=== PATIENT | male | born 1985 | race Caucasian/White ===

== ENCOUNTER → 2017-08-08 | Outpatient (CLI) | payer OTHER ==
[~2017-08-08] MED LIST: MULT1TAB46 PO; SACC1CAP3 PO
[2017-08-08 11:21] LABS: HEMATOCRIT 43.9 % (39.0-51.0); HEMOGLOBIN 15.5 GM/DL (13.0-17.0); MEAN CELL VOLUME 88.1 FL (80.0-100.0); MEAN CORPUSCULAR HEMOGLOBIN 31.2 PG (27.0-34.0); MEAN CORPUSCULAR HGB CONC 35.4 % (32.0-36.0); MEAN PLATELET VOLUME 7.6 FL (7.0-11.0); PLATELET COUNT 248 TH/MM3 (150-450); RED BLOOD COUNT 4.98 MIL/MM3 (4.50-5.90); RED CELL DISTRIBUTION WIDTH 12.5 % (11.6-17.2); WHITE BLOOD COUNT 3.5 TH/MM3 (4.0-11.0)
[2017-08-08 11:25] LABS: BILIRUBIN, URINE NEG (NEG); BLOOD, URINE NEG (NEG); GLUCOSE,URINE NEG (NEG); KETONE, URINE NEG (NEG); NITRITE,URINE NEG (NEG); URINE COLOR YELLOW (YELLW/STRAW); URINE LEUKOCYTE ESTERASE NEG (NEG)
--- NOTE | 2017-08-08 11:27 | RADRPT ---
EXAM DATE/TIME: 08/08/2017 10:52 [place] COMPARISON: No previous studies available for comparison. INDICATIONS : Evaluate for pneumonia, pneumothorax or communicable disease. Pre op for left knee arthroscopy. MEDICAL HISTORY : None. SURGICAL HISTORY : None. ENCOUNTER: Initial ACUITY: 1 day PAIN SCORE: 0/10 LOCATION: Bilateral chest FINDINGS: PA and lateral views of the chest demonstrate the lungs to be symmetrically aerated without evidence of mass, infiltrate or effusion. The cardiomediastinal contours are unremarkable. Osseous structure s are intact. CONCLUSION: No acute disease. Miles Winchester MD on August 08, 2017 at 11:25 Board Certified Radiologist. This report was verified electronically.
[2017-08-08 11:29] LABS: PROTHROMBIN TIME - PATIENT 10.5 SEC (9.8-11.6)
[2017-08-08 11:43] LABS: BICARBONATE 29.4 MEQ/L (21.0-32.0); CALCIUM 9.4 MG/DL (8.5-10.1); CREATININE 1.14 MG/DL (0.60-1.30)
== END ==
LOC: CPRE 10:04
PROVIDERS: ATTEND Orthopaedic Surgery
DX: Z01.812 Encounter for preprocedural laboratory examination (principal); Z01.818 Encounter for other preprocedural examination; S83.242A Other tear of medial meniscus, current injury, left knee, initial encounter; X58.XXXA Exposure to other specified factors, initial encounter
CPT/HCPCS: 36415; 71046; 80048; 81001; 85027; 85610

== ENCOUNTER → 2017-08-18 | Day surgery (SDC) | payer OTHER ==
--- NOTE | 2017-08-14 12:07 | MH ---
cc: JEAN MARIE HUANG DATE OF ADMISSION 08/18/2017 ADMITTING DIAGNOSIS 1. Medial meniscus tear, left knee. 2. Effusion, left knee. 3. Cabrales's cyst, left knee. 4. Pain, left knee. HISTORY OF PRESENT ILLNESS The patient is a 33-year-old white male who has experienced pain in his left knee of approximately 5 months duration. The onset of his symptoms were associated with hiking and a hunting trip to the [place] area in February of this past year when he became symptomatic, especially negotiating a downhill terrain. Upon his return home he conformed to conservative management modifying all exercise activities but experiencing minimal swelling about the knee. He attempted to resume his exercise program becoming aware of generalized soreness about the suprapatellar region of his left knee and later underwent orthopedic evaluation. He was diagnosed as having chondromalacia patellae and later underwent an MRI scan the results of which identified a tear involving the posterior horn of the medial meniscus associated with a trace joint effusion and Cabrales's cyst formation. The patient was later seen by the undersigned physician in second opinion evaluation in June of this year describing lingering soreness about the left knee with an intermittent popping sensation but no significant swelling. He had previously utilized a limited amount of [id number] medication for discomfort but more recently and not required continued medical management. He denied prior history of injury involving his left knee. His clinical findings at that time were felt to be consistent with an internal derangement of his left knee involving his medial meniscus for which findings and treatment options were reviewed. The pros and cons of continuing with conservative management versus operative intervention that would involve arthroscopic surgery were outlined. Emphasis was made regarding the fact that the decision to proceed with surgery would be left entirely to the patient's discretion. The patient felt that his symptoms had progressed to that point in time where he would like to proceed accordingly and in compliance with his wishes he was scheduled for admission at this time in order that the above be accomplished. PAST MEDICAL HISTORY His past medical history, hospitalizations and surgeries have included: 1. Arthroscopic surgery of his left shoulder for history of a labral tear. 2. Tonsillectomy. The patient denies active medical illnesses. MEDICATIONS He takes no prescribed medications. ALLERGIES He indicates a drug allergy to BACTRIM WHICH HAS BEEN ASSOCIATED WITH RASH FORMATION. REVIEW OF SYSTEMS He does wear glasses. Denies headache, seizure or syncope. No sinus congestion or epistaxis. Auditory acuity intact. No tinnitus. No bleeding gums or dysphagia. Denies cough, shortness of breath, upper respiratory infection, pneumonia or tuberculosis. No angina or heart disease. His appetite is good. Bowel movements are regular. No hepatitis, gallbladder disease, ulcers or hemorrhoids. No urinary tract infection. No kidney stones. History of a fracture of his left wrist and left hand both treated nonoperatively. No psychiatric illness. His remaining review of systems is unremarkable and noncontributory. FAMILY HISTORY The patient has been for 6 years. His is 36 years of age and described as being in good health. Two daughters indicated to be in good health. Family history is otherwise positive for hypertension and diabetes. SOCIAL HISTORY The patient completed a college education with a degree in civil engineering. He is employed as a advisory software engineer. He denies active use of tobacco for at least 6 years but had been a less than a one pack per day smoker for approximately 10 years prior to that time. Ethanol consumption is no more than an occasional basis. PHYSICAL EXAMINATION Height 5 feet 10 inches, weight 185 pounds. GENERAL: An alert, oriented and responsive 33-year-old white male who sits quietly upon the examination table with no obvious distress. HEAD, EYES, EARS, NOSE, AND THROAT: Pupils are equally round and reactive to light. Extraocular movements full. Sclera clear. External nares clear. External auditory canals clear. Dental intact. Mucous membranes pink and moist. Pharynx clear. NECK: Supple. Active range of motion with no appreciable pain. Carotid pulse palpable bilaterally. Trachea midline. Thyroid without enlargement. LUNGS: Clear to auscultation and percussion. BACK: No CVA tenderness. No discomfort throughout the dorsolumbar spine. HEART: Regular rhythm. No murmur or gallop. ABDOMEN: Soft, nontender. Bowel sounds present. RECTAL: Deferred. EXTREMITIES: Left Knee: No significant swelling or appreciable intra-articular effusion. No joint line tenderness. Apprehension and compression sign negative. Satisfactory mobility of the knee joint with mild genu recurvatum. No crepitation or instability. No collateral ligamentous laxity. Jack test and drawer sign negative. Pivot shift and Negrito sign minimally positive for medial compartment pain. Straight-leg raising unremarkable at 80 degrees. Satisfactory mobility of the left hip with no associated pain. Independent gait. NEUROLOGIC: Cranial nerves II through XII grossly intact. IMPRESSION 1. Medial meniscus tear, left knee. 2. Effusion, left knee. 3. Cabrales's cyst, left knee. 4. Pain, left knee. PLAN Arthroscopic surgery left knee, possible arthrotomy. The nature of the planned surgical procedure, the potential complications and risks associated, the expectations of surgery and the consent form were thoroughly reviewed with the patient prior to his admission to the hospital. Hemal has indicated his full understanding regarding all of the above and given consent to proceed with treatment as outlined. Jean Marie Haung MD NBS/BT /11:33 AM /11:46 AM
[~2017-08-18] VITALS: Ht 177.8 cm; Wt 82.2 kg
[~2017-08-18] MED LIST changes: +ACETAMINOPHEN 1000 MG/100 ML 100 ML IV ONE; +ACETAMINOPHEN/HYDROcodone 325 MG/5 MG TAB PO PRN; +BUPIVACAINE/EPINEPHRINE 0.25% 50 ML VIAL ONE; +CHLORHEXIDINE GLUCONATE 2 % 1 PACK (2 CLOTHS) TOPICAL PRN; +DEXAMETHASONE SOD PHOS 4 MG/ML VIAL IV ONE; +DO NOT ADM ANY ANTICOAGULANT DRUGS PRN; +FAMOTIDINE 20 MG/2 ML VIAL ONE; +GLYCOPYRROLATE 1 MG/5 ML SYRINGE IV PUSH ONE; +KETOROLAC TROMETHAMINE 30 MG/ML (IVP) VIAL IV PUSH ONE; +LACTATED RINGER'S 1000 ML IV PRN; +LIDOCAINE HCL 1% PF 5 ML SYRINGE OTHER ONE; +LIDOCAINE HCL 2% 50 ML VIAL ONE; +METOPROLOL TARTRATE 25 MG TAB PO PRN; +MIDAZOLAM HCL 2 MG/2 ML VIAL ONE; +MORPHINE SULFATE 10 MG/ML INJ IM PRN; +ONDANSETRON HCL 4 MG/2 ML VIAL IV ONE; +POVIDONE IODINE 5% (ANTISEPSIS KIT) 4 APPLICATIONS EACH NARE PRN; +POVIDONE IODINE 7.5% SCRUB 118 ML BOTTLE TOPICAL SCH; +PROMETHAZINE INJ 25 MG/ML VIAL IM PRN; +PROPOFOL 200 MG/20 ML AMP IV ONE; +SODIUM CHLORID 0.9% 500 ML IV PRN; +TRIAMCINOLONE ACETONIDE/PF 40 MG/ML OPTH VIAL ONE; +ceFAZolin 2 GM PREMIX 50 ML IV SCH
[2017-08-18 09:25] VITALS: BP 113/85; PULSE 63; RESP 18; TEMP 98.7; O2SAT 99
--- NOTE | 2017-08-18 12:02 | MP ---
cc: Jose De Jesus Huang MD DATE OF OPERATION: 08/18/2017 DATE OF OPERATION: 08/18/2017 PREOPERATIVE DIAGNOSES: Medial meniscus tear of the left knee, effusion left knee, Cabrales cyst left knee and pain of the left knee. POSTOPERATIVE DIAGNOSES: Medial meniscus tear of the left knee, effusion left knee, Cabrales cyst left knee, pain of the left knee, and synovial plica left knee. PROCEDURE PERFORMED: Partial medial meniscectomy left knee with resection of synovial plica. SURGEON: Jose De Jesus Huang MD ANESTHESIA: General by LMA. DESCRIPTION OF PROCEDURE: Following the induction of satisfactory general anesthesia by LMA insertion as completed per the Department of Anesthesia, examination of the left knee did reveal a satisfactory range of motion with no appreciable ligamentous instability. The extremity proper was positioned into the Rubber Ball Finisher knee thomas, prepped with Betadine solution and draped into a sterile field in the routine manner. Prior to initiation of the actual surgical procedure, the standard timeout protocol was completed. All parameters were appropriately addressed and confirmed by operating room personell. Arthroscopic instrumentation was introduced though a stab wound utilizing a canula with sharp and blunt trocar, the inflow irrigation by way of a medial suprapatellar portal, the arthroscope through a lateral parapatellar portal and the probe through a medial parapatellar portal. Examination of the suprapatellar pouch revealed a very minimal amount of synovial proliferation. There was a prominent synovial plica that extended throughout the medial gutter of the suprapatellar region. The patellofemoral articulation was congruent throughout without appreciable degenerative change. Within the medial compartment, there was uniformity of the articular surface of both the femoral condyle and the tibial plateau. There was minimal irregularity involving the posterior horn of the medial meniscus with some marginal fraying that thought to be consistent with the interpretation of the preoperative MRI scan. Within the intercondylar region, the anterior cruciate ligament was identified and noted to be intact. Examination of the lateral compartment revealed no significant internal derangement. There was uniformity of the articular surface, as well as the lateral meniscus structure. Attention returned to the medial compartment. Utilizing a 3.8 mm aggressive resector, a partial medial meniscectomy of the posterior horn region was accomplished. Thereafter, the shaver was oriented into the suprapatellar region and previously identified synovial plica was resected without difficulty. Upon completion of same, the joint space was thoroughly lavaged and suctioned dry. An intraarticular Kenalog, marcaine with epinephrine injection was completed. Portal sites were reapproximated with Steri-Strips over which Xeroform gauze and a bulky dry sterile dressing were placed. Anesthesia was discontinued and the patient thus transferred to a hospital stretcher and returned to the recovery room in satisfactory condition, having tolerated his operative procedure well. Estimated blood loss was less than 5 mL. MD JUAN CARLOS Rodriguez/KD , 08:21 AM , 12:00 PM
== END | disposition home or self-care (01) ==
LOC: HSDC 05:21
PROVIDERS: ATTEND Orthopaedic Surgery
DX: S83.242A Other tear of medial meniscus, current injury, left knee, initial encounter (principal); M25.462 Effusion, left knee; M71.22 Synovial cyst of popliteal space [Baker], left knee; M67.52 Plica syndrome, left knee
CPT/HCPCS: 01400; 29881; J0131; J0690; J1100; J1885; J2250; J2405; J3010; J3300; J7120